=== PATIENT | female | born 1965 | race Asian ===

== ENCOUNTER 2017-11-12 07:17 | Day surgery (SDC) | payer OTHER ==
[~2017-11-12 07:17] MED LIST: ACETAMINOPHEN 1000 MG/100 ML IVPB; CEFAZOLIN 1 GM INJ; CEFAZOLIN 2 GM/50 ML (PMX) 50 ML IVPB; SOD CHLORIDE 0.9% 1,000 ML IV
[2017-11-12] MEDS ORDERED: PROPOFOL 40 ML (08:48)
[2017-11-12] MEDS ORDERED: ROCURONIUM 50 MG INJ (08:48)
[2017-11-12] MEDS ORDERED: LIDOCAINE 2% (SDV) 5 ML INJ (08:48)
[2017-11-12] MEDS ORDERED: FENTAnyl 50 MCG/ML VIAL (08:51)
[2017-11-12] MEDS ORDERED: MIDAZOLAM 1 MG/ML 2 ML INJ IV (09:00)
[2017-11-12] MEDS ORDERED: KETOROLAC 30 MG INJ IV (09:00)
[2017-11-12] MEDS ORDERED: INSULIN ASPART [NOVOLOG] 3 ML PEN SC (09:00)
[2017-11-12] MEDS ORDERED: MEPERIDINE 25 MG INJ IV (09:00)
[2017-11-12] MEDS ORDERED: OXYCODONE/ACETAMINOPHEN (5/325) TAB PO ×2 (09:00)
[2017-11-12] MEDS ORDERED: DIPHENHYDRAMINE 50 MG INJ IV (09:00)
[2017-11-12] MEDS ORDERED: HYDROmorphONE (0.2 MG/ML) 10ML SYG IV ×3 (09:00)
[2017-11-12] MEDS ORDERED: LABETALOL HCL 20MG INJ IV (09:00)
[2017-11-12] MEDS ORDERED: hydrALAzine 20 MG INJ IV (09:00)
[2017-11-12] MEDS ORDERED: ALBUTEROL 0.083% (NEB) 2.5 MG/3 ML AMP HHN (09:00)
[2017-11-12] MEDS ORDERED: FENTAnyl 50 MCG/ML VIAL IV ×2 (09:00)
[2017-11-12] MEDS ORDERED: EPHEDrine SULFATE 50 MG/5 ML SYG IV (09:00)
[2017-11-12] MEDS ORDERED: PHENYLephrine (100 MCG/ML) 5ML SYG (09:14)
[2017-11-12] MEDS ORDERED: DEXAMETHASONE 4 MG/ML 1 ML INJ (09:18)
[2017-11-12] MEDS ORDERED: ONDANSETRON 4 MG INJ (09:19)
[2017-11-12] MEDS: BUPIVACAINE 0.25% (MPF) 30 ML INJ (09:19)
[2017-11-12] MEDS ORDERED: SUGAMMADEX SODIUM 200 MG/2 ML VIAL IV (09:27)
[2017-11-12] MEDS: ONDANSETRON 4 MG INJ IV (10:23)
[2017-11-12] MEDS: FENTAnyl 50 MCG/ML VIAL IV ×2 (10:24→10:36)
[2017-11-12] MEDS: HYDROCODONE/APAP (5/325) TAB PO (10:42)
== END 2017-11-12 12:52 | disposition home or self-care (01) ==
LOC: SDS 07:17
DX: K80.10 Calculus of gallbladder with chronic cholecystitis without obstruction (principal); E11.9 Type 2 diabetes mellitus without complications; E03.9 Hypothyroidism, unspecified; I10 Essential (primary) hypertension
CPT/HCPCS: 47562; 82962; 84703; 88304; 88307; 88313